=== PATIENT | female | born 1965 | race Caucasian/White ===

== ENCOUNTER 2018-08-24 19:01 | Emergency (ER) | payer BC ==
[2018-08-24 19:41] VITALS: BP 126/86
--- NOTE | 2018-08-24 19:59 | UC ---
FLU HPI - HPI Summary HPI Summary: Pt presents with c/o sudden onset of fever, chills, body aches, cough and fatigue. - History of Current Complaint Chief Complaint: UCGeneralIllness Stated Complaint: BODY ACHES,COUGH,NAUSEA,CHILLS Time Seen by Provider: 08/24/18 19:39 Hx Obtained From: Patient ?: No Onset/Duration: Sudden Onset, Lasting Days, Still Present Severity Currently: Moderate Severity Initially: Moderate Pain Intensity: 2 Associated Signs & Symptoms: Positive: Fever, Myalgia, Cough, Nasal Congestion, Headache Related Hx: Possible Flu/Infectious Exposure - Risk Factors Influenza Risk Factors: Negative - Allergy/Home Medications Allergies/Adverse Reactions: Allergies Allergy/AdvReac Type Severity Reaction Status Date / Time No Known Allergies Allergy Verified 08/24/18 19:41 Home Medications: Home Medications Acetaminophen [Tylenol Extra Strength] 1,000 mg PO DAILY 08/24/18 [History Confirmed 08/24/18] Levothyroxine TAB* [Synthroid TAB*] 137 mcg PO DAILY 08/24/18 [History Confirmed 08/24/18] Lisinopril TAB* [Prinivil TAB*] 10 mg PO DAILY 08/24/18 [History Confirmed 08/24] PMH/Surg Hx/FS Hx/Imm Hx Previously Healthy: Yes Cardiovascular History: Hypertension - Surgical History Surgical History: Yes Surgery Procedure, Year, and Place: TUBAL LIGATION. 2015 - LIFTED BLADDER - Family History Known Family History: Positive: Cardiac Disease - Social History Occupation: Employed Full-time Lives: With Family Alcohol Use: Occasionally Substance Use Type: None Smoking Status (MU): Never Smoked Tobacco Have You Smoked in the Last Year: No - Immunization History Most Recent Influenza Vaccination: did not get Review of Systems All Other Systems Reviewed And Are Negative: Yes Constitutional: Positive: Fever, Chills, Fatigue Skin: Positive: Negative Eyes: Positive: Negative ENT: Positive: Negative Respiratory: Positive: Cough Cardiovascular: Positive: Negative Gastrointestinal: Positive: Negative Genitourinary: Positive: Negative Motor: Positive: Negative Neurovascular: Positive: Negative Musculoskeletal: Positive: Myalgia Neurological: Positive: Headache Psychological: Positive: Negative Is Patient Immunocompromised?: No Physical Exam Triage Information Reviewed: Yes Appearance: Ill-Appearing Vital Signs: Initial Vital Signs Temp 99.7 F 08/24/18 19:37 Pulse 104 08/24/18 19:37 Resp 18 08/24/18 19:37 BP 126/86 08/24/18 19:37 Pulse Ox 100 08/24/18 19:37 Vital Signs Reviewed: Yes Eye Exam: Normal ENT Exam: Normal Dental Exam: Normal Neck exam: Normal Respiratory Exam: Normal Cardiovascular Exam: Normal Musculoskeletal Exam: Normal Neurological Exam: Normal Psychological Exam: Normal Skin Exam: Normal Flu Course/Dx - Differential Dx/Diagnosis Differential Diagnosis/HQI/PQRI: Influenza, Upper Respiratory Infection Provider Diagnosis: Viral syndrome Discharge - Sign-Out/Discharge Documenting (check all that apply): Patient Departure All imaging exams completed and their final reports reviewed: No Studies - Discharge Plan Condition: Stable Disposition: HOME Patient Education Materials: Viral Syndrome (ED) Forms: *Work Release Referrals: [facility] [Outside] - If Needed No Primary Care Phys,NOPCP [Primary Care Provider] - - Billing Disposition and Condition Condition: STABLE Disposition: Home
[2018-08-24 20:07] LABS: Influenza A Molecular NEGATIVE (Negative); Influenza B Molecular NEGATIVE (Negative)
== END 2018-08-24 20:25 | disposition home or self-care (01) ==
LOC: UCCORT 19:01
DX: B34.9 Viral infection, unspecified (principal); I10 Essential (primary) hypertension; R05 Cough; R09.81 Nasal congestion; R51 Headache; M79.10 Myalgia, unspecified site; R53.83 Other fatigue; R11.0 Nausea
CPT/HCPCS: 99211; G0463

== ENCOUNTER 2020-02-14 09:11 | Inpatient (IN) ==
[~2020-02-14 09:11] MED LIST: Buffered Lidocaine 1% SYRIN 1 ml INTRADERM ONE; Dexamethasone IV 4 MG/ML VIAL 1 ml VIAL ONE; Famotidine IV 10 MG/ML 2 ml VIAL (20 mg) IV ONE; Ketamine HCL 50 mg/ml 10 ml VIAL (500 MG) ONE; Lactated Ringers 1000 ml BAG 1,000 ML IV SCH; Lidocaine 2% PF 5 ML VIAL ONE; Metoclopramide 5 MG/ML VIAL (10 mg) ONE; Midazolam 2 mg/2 ml VIAL 1 mg/ml 2 ml VIAL (2 mg) ONE; Ondansetron 4 mg VIAL 2 MG/ML 2 ml VIAL ONE; Propofol 10 MG/ML 20 ML BTL ONE; fentaNYL 250 mcg/5 ml 50 MCG/ML 5 ml VIAL (250 MCG) ONE
[2020-02-14] MEDS ORDERED: Buffered Lidocaine 1% SYRIN 1 ml INTRADERM ONE (09:29)
[2020-02-14] MEDS ORDERED: ceFAZolin 1 GM ADVAN 1 GM ADDV.VIAL IVPB ONE (09:29)
[2020-02-14] MEDS ORDERED: ceFAZolin 2 GM in NS PREMIX 2 GM/100 ML BAG IVPB ONE (09:29)
[2020-02-14] MEDS ORDERED: Heparin 5000 UNITS/ML 1 mL VIAL ONE (09:29)
[2020-02-14] MEDS ORDERED: Famotidine IV 10 MG/ML 2 ml VIAL (20 mg) ONE (09:30)
[2020-02-14] MEDS ORDERED: Rocuronium 50 mg VIAL 10 mg/ml 5 ml VIAL (50 mg) ONE (09:40)
[2020-02-14] MEDS ORDERED: Bupivacaine 0.25% w/EPI 10 ML SDV ONE (10:51)
[2020-02-14] MEDS ORDERED: Methylene Blue 0.5 % 50 MG/10 ML AMP IV ONE (10:51)
[2020-02-14] MEDS ORDERED: HYDROmorphone 0.5 MG/0.5 ML SYRINGE IV SLOW PU PRN (14:02)
[2020-02-14] MEDS ORDERED: HYDROcodone/ACET. 7.5/325 LIQ 15 ML UDC PO PRN (14:02)
[2020-02-14] MEDS ORDERED: Ondansetron 4 mg VIAL 2 MG/ML 2 ml VIAL IV PRN (14:02)
[2020-02-14] MEDS ORDERED: HYDROmorphone 1 MG/1 ML SYRINGE ONE (14:17)
[2020-02-14] MEDS ORDERED: Labetalol IV 5 MG/ML 20 ml VIAL IV PUSH PRN (15:09)
[2020-02-14] MEDS: Lactated Ringers 1000 ml BAG 1,000 ML IV SCH ×2 (15:45→22:25)
[2020-02-15] MEDS: Lactated Ringers 1000 ml BAG 1,000 ML IV SCH ×2 (05:03→12:08)
[2020-02-15] MEDS: Heparin 5000 UNITS/ML 1 mL VIAL SUBCUT SCH ×2 (05:46→14:59)
[2020-02-15] MEDS ORDERED: D5W 1/2 NS KCl 20 meq 1000 ml 1,000 ML IV SCH (15:00)
[2020-02-15 15:50] VITALS: BP 142/66
== END 2020-02-15 17:52 | disposition home or self-care (01) | DRG 403 ==
LOC: AA 09:11 → SSU 14:02
PROVIDERS: ADMIT Surgery; ATTEND Surgery